=== PATIENT | female | born 1970 | race Caucasian/White ===

== ENCOUNTER 2016-12-26 00:33 | Emergency (ER) | payer BC ==
[2016-12-26 01:30] VITALS: TEMP 98.7; O2SAT 100
[2016-12-26] MEDS ORDERED: MORPHINE SULFATE INJ 10 MG/ML VIAL IV ONE ×2 (01:37→02:18)
[2016-12-26] MEDS ORDERED: SODIUM CHLORIDE 0.9% 10 ML VIAL ONE (01:41)
--- NOTE | 2016-12-26 02:05 | ED.PDOC ---
History of Present Illness - General Chief Complaint: Upper Extremity Injury Stated Complaint: Left shoulder pain Time Seen by Provider: 12/26/16 01:05 Source: patient, RN notes reviewed, Vital Signs reviewed, family - History of Present Illness Initial Comments: Patient is a 46 y/o female complaining of left shoulder pain. Additionally, she complains of severe anxiety and panic over the past three days. Prior to seeing Patient, her wanted to speak with me. He says that she has decreased her eating significantly and is barely eating at this time. Over the past several days she has had severe anxiety, but refused to go see a physician. However tonight she asked him to bring her here. He is concerned because she has lost a significant amount of weight. Patient is very anxious and is very embarrassed about her condition. She has a sore on her shoulder that she has been nursing herself for the past year. Now her shoulder and neck are in severe pain. She is unable to move her shoulder very far at all. She is crying and keeps saying how embarrassed she is. The areas are extremely sensitive to touch. she doesn't eat much because it hurts to swallow. Her tongue and mouth are on fire. Timing/Duration: getting worse, other - 1 year Severity: severe Improving Factors: immobilization Worsening Factors: eating, movement Associated Symptoms: chest pain, loss of appetite, malaise, weakness Allergies/Adverse Reactions: Allergies Azithromycin [From Zithromax Z-Jarrell] Allergy (Verified 12/26/16 01:13) Review of Systems - Review of Systems Constitutional: States: malaise, weakness EENTM: States: ear pain, throat pain, throat swelling, mouth pain Respiratory: States: short of breath Cardiology: States: chest pain Gastrointestinal/Abdominal: States: other - anorexia Genitourinary: States: no symptoms reported Musculoskeletal: States: joint pain, joint swelling, muscle pain, neck pain Skin: States: lesions Neurological: States: anxiety, depressed, emotional problems, headache Endocrine: States: intolerance to cold, unexplained weight loss Hematologic/Lymphatic: States: no symptoms reported All other Systems: Reviewed and Negative Past Medical History (General) - Patient Medical History Hx Diabetes: No - Vaccination History Hx Influenza Vaccination: Yes - Female History Patient is a Female of Child Bearing Age (10 -59 yrs old): No Patient : No Family Medical History - Family History Father Family History: Unknown Physical Exam - Physical Exam General Appearance: Alert, Anxious, Emaciated, Obvious distress, Ill Appearing Eye Exam: bilateral normal Ears, Nose, Throat: hearing grossly normal, other - glossitis Neck: limited range of motion, tender lateral, other - erythema on the left to the bottom of the ear lobe. Extremely tender to palpation. Respiratory: lungs clear, normal breath sounds, no respiratory distress, no accessory muscle use Cardiovascular/Chest: no murmur, tachycardia Gastrointestinal/Abdominal: non tender, soft, no organomegaly Neurologic: alert, oriented x 3, depressed affect Skin Exam: other - Patient has a very large uler Lymphatic: other - Unable to assess due to the severe tenderness of the area. Progress - Progress Progress: 12/26/16 02:[address] was ordered but not done because Patient was not able to move her arm where she would fit inside of the CT machine. - Results/Orders Results/Orders: 12/26/16 01:24 Temperature 98.7 F Pulse Rate [rt] 124 H Respiratory 20 Rate Blood Pressure 147/56 [Left Arm] O2 Sat by Pulse 100 Oximetry 12/26/16 01:00 BLOOD CULTURE Stat 12/26/16 01:18 WOUND CULTURE Stat 12/26/16 01:44 LACTIC ACID Stat 12/26/16 02:10 Vancomycin HCl Inj 750 mg Sodium Chloride 0.9% 250Ml [NS 250ml] 250 ml IVPB ONCE Laboratory Results WBC 23.0 K/mm3 (4.8-10.8) H* 12/26/16 01:00 RBC 2.27 M/mm3 (4.20-5.40) L 12/26/16 01:00 Hgb 3.2 gm/dL (12.0-16.0) L* 12/26/16 01:00 Hct 12.4 % (36.0-47.0) L 12/26/16 01:00 MCV 54.7 fl (81.0-99.0) L 12/26/16 01:00 MCH 14.0 pg (27.0-31.0) L 12/26/16 01:00 MCHC 25.7 g/dL (33.0-37.0) L 12/26/16 01:00 RDW 20.9 % (11.5-14.5) H 12/26/16 01:00 Plt Count 402 K/mm3 (130-400) H 12/26/16 01:00 MPV 8.4 fl (7.40-10.4) 12/26/16 01:00 Absolute Neuts (auto) 19.50 K/uL (1.8-6.8) H 12/26/16 01:00 Absolute Lymphs (auto) 2.40 K/uL (1.0-3.4) 12/26/16 01:00 Absolute Monos (auto) 0.90 K/uL (0.2-0.8) H 12/26/16 01:00 Absolute Eos (auto) 0.20 K/uL (0.0-0.4) 12/26/16 01:00 Absolute Basos (auto) 0.10 K/uL (0.0-0.1) 12/26/16 01:00 Neutrophils % % (42.0-78.0) 12/26/16 01:00 Neutrophils % (Manual) 83.0 % 12/26/16 01:00 Lymphocytes % % (20.0-50.0) 12/26/16 01:00 Lymphocytes % (Manual) 9.0 % 12/26/16 01:00 Monocytes % % (2.0-9.0) 12/26/16 01:00 Monocytes % (Manual) 4.0 % 12/26/16 01:00 Eosinophils % % (1.0-5.0) 12/26/16 01:00 Basophils % % (0.0-2.0) 12/26/16 01:00 Band Neutrophils 4.0 % 12/26/16 01:00 Eosinophils 0.0 % 12/26/16 01:00 Basophils 0.0 % 12/26/16 01:00 Poikilocytosis 1+ 12/26/16 01:00 Anisocytosis 3+ 12/26/16 01:00 Microcytosis 4+ 12/26/16 01:00 Sodium 138 mmol/L (135-145) 12/26/16 01:00 Potassium 2.2 mmol/L (3.6-5.0) L* 12/26/16 01:00 Chloride 104 mmol/L (101-111) 12/26/16 01:00 Carbon Dioxide 23 mmol/L (21-31) 12/26/16 01:00 Anion Gap 13.2 (12-18) 12/26/16 01:00 BUN 24 mg/dL (7-18) H 12/26/16 01:00 Creatinine 1.30 mg/dL (0.6-1.3) 12/26/16 01:00 BUN/Creatinine Ratio 18.5 (10-20) 12/26/16 01:00 Random Glucose 113 mg/dL (70-105) H 12/26/16 01:00 Serum Osmolality 280.5 mOsm/L (275-295) 12/26/16 01:00 Calcium 9.5 mg/dL (8.4-10.2) 12/26/16 01:00 Phosphorus 3.9 mg/dL (2.5-4.6) 12/26/16 01:00 Magnesium 1.9 mg/dL (1.8-2.5) 12/26/16 01:00 Total Bilirubin 0.3 mg/dL (0.2-1.0) 12/26/16 01:00 AST 12 IU/L (10-42) 12/26/16 01:00 ALT < 8 IU/L (10-60) L 12/26/16 01:00 Alkaline Phosphatase 176 IU/L (42-121) H 12/26/16 01:00 Serum Total Protein 6.8 gm/dL (6.4-8.2) 12/26/16 01:00 Albumin 1.9 g/dl (3.2-5.5) L 12/26/16 01:00 Globulin 4.9 gm/dL (2.3-3.5) H 12/26/16 01:00 Albumin/Globulin Ratio 0.4 (1.1-1.9) L 12/26/16 01:00 TSH 1.76 uIU/mL (0.34-5.60) 12/26/16 01:00 - EKG/XRAY/CT CT Ordered: No - Not performed Departure - Departure Clinical Impression: Neutrophilic leukocytosis, Hypokalemia, Anxiety, Anorexia Skin ulceration Qualifiers: Non-pressure ulcer stage: with necrosis of muscle Qualifier Code: (L98.493) 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 Huston Accepting Facility: [facility] Reason for Transfer: specialized care not available
[2016-12-26] MEDS ORDERED: VANCOMYCIN HCL INJ 750 MG in SODIUM CHLORIDE 0.9% 250ML 250 ML IVPB ONE (02:10)
[2016-12-26] MEDS ORDERED: SODIUM CHLORIDE 0.9% 500ML 500 ML ONE (02:18)
[2016-12-26] MEDS ORDERED: SODIUM CHLORIDE 0.9% 250ML 250 ML ONE (02:21)
[2016-12-26] MEDS ORDERED: VANCOMYCIN HCL INJ 1,000 MG VIAL IVPB ONE (02:21)
[2016-12-26 02:47] VITALS: BP 124/70
== END 2016-12-26 03:24 | disposition short-term general hospital (02) ==
LOC: ER 00:33
DX: L98.493 Non-pressure chronic ulcer of skin of other sites with necrosis of muscle (principal); E87.6 Hypokalemia; D72.828 Other elevated white blood cell count; R63.0 Anorexia; Z88.3 Allergy status to other anti-infective agents; D64.9 Anemia, unspecified

== ENCOUNTER → 2018-01-09 | Outpatient (CLI) | payer BC | LOC: GMAJS 16:44 | PROVIDERS: ATTEND Physician Assistant | DX: N30.00 Acute cystitis without hematuria (principal) ==

== ENCOUNTER 2020-07-27 16:03 | Outpatient (CLI) | payer BC, MEDICARE ==
[2020-07-28] MEDS ORDERED: SODIUM CHLORIDE 0.9% 250ML 250 ML IVS PRN (12:48)
[2020-07-28] MEDS ORDERED: HEPARIN SODIUM 100 U/ML 5 ML SYG IV ONE (12:49)
[2020-07-28] MEDS ORDERED: SODIUM CHLORIDE 0.9% (FLUSH) 10 ML SYG IV ONE (12:49)
[2020-07-28 15:40] VITALS: TEMP 97.6; O2SAT 95
[2020-07-29 07:09] VITALS: BP 100/70
== END 2020-07-28 16:00 ==
LOC: LAB.O 16:03 → INFRM 07-28 16:00
PROVIDERS: ATTEND Internal Medicine Hematology & Oncology
DX: C44.82 Squamous cell carcinoma of overlapping sites of skin (principal); D63.0 Anemia in neoplastic disease
CPT/HCPCS: 36430; 86850; 86900; 86901; 86922; P9016